=== PATIENT | male | born 2000 | race Caucasian/White ===

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

== ENCOUNTER 2021-08-19 22:09 | Inpatient (IN) | payer BC, MEDICAID ==
--- NOTE | 2021-08-20 01:06 | ED ---
Psych HPI - General Chief Complaint: Psychiatric Symptoms Stated Complaint: Petition Time Seen by Provider: 08/19/21 23:28 Source: patient Mode of arrival: ambulatory - History of Present Illness Initial Comments: This patient is a 21-year-old man with history of long-standing depression who is brought to have psychiatric evaluation. The patient's mother had called police to have him evaluated here. He had made statements that he would be better off . The patient admits to making the statements but states that he has had long-standing depression and that he is not feel at risk of harming himself today. Complaint: feels depressed -: year(s) Associated Psychiatric Symptoms: depression Quality: constant Improves With: none Worsens With: none Associated Symptoms: denies other symptoms - Related Data Previous Rx's Medication Instructions Recorded Albuterol Nebulized [Ventolin 2.5 mg INHALATION Q4H #30 nebu 10/19/18 Nebulized] Azithromycin [Zithromax Z-pack (6 250 mg PO DIRECTED #6 tab 10/19/18 tabs)] methylPREDNISolone [Medrol Dose 4 mg PO DIRECTED #1 pack 10/19/18 Pack] Allergies Allergy/AdvReac Type Severity Reaction Status Date / Time No Known Allergies Allergy Verified 10/19/18 11:53 Review of Systems ROS Statement: Those systems with pertinent positive or pertinent negative responses have been documented in the HPI. ROS Other: All systems not noted in ROS Statement are negative. Constitutional: Denies: fever, chills Respiratory: Denies: cough, dyspnea Cardiovascular: Denies: chest pain, palpitations Gastrointestinal: Denies: abdominal pain, vomiting, diarrhea Genitourinary: Denies: dysuria Musculoskeletal: Denies: back pain Skin: Denies: rash Neurological: Denies: headache Psychiatric: Reports: depression. Denies: auditory hallucinations, visual hallucinations, homicidal thoughts, suicidal thoughts Past Medical History Past Medical History: No Reported History History of Any Multi-Drug Resistant Organisms: None Reported Past Surgical History: No Surgical Hx Reported Past Psychological History: Anxiety, Depression Smoking Status: Current every day smoker Past Alcohol Use History: None Reported Past Drug Use History: Marijuana General Exam Limitations: no limitations General appearance: alert, in no apparent distress Head exam: Present: atraumatic, normocephalic Eye exam: Present: normal appearance. Absent: scleral icterus, conjunctival injection Neck exam: Present: normal inspection Respiratory exam: Present: normal lung sounds bilaterally. Absent: respiratory distress, wheezes, rales, rhonchi, stridor Cardiovascular Exam: Present: regular rate, normal rhythm, normal heart sounds. Absent: systolic murmur, diastolic murmur, rubs, gallop GI/Abdominal exam: Present: soft. Absent: distended, tenderness, guarding, rebound, rigid, mass Extremities exam: Present: normal inspection, normal capillary refill. Absent: pedal edema, calf tenderness Back exam: Present: normal inspection. Absent: CVA tenderness (R), CVA tenderness (L) Neurological exam: Present: alert Psychiatric exam: Present: depressed. Absent: agitated, anxious, flat affect, homicidal ideation, suicidal ideation Skin exam: Present: warm, dry, intact, normal color. Absent: rash Course Vital Signs 08/19/21 22:28 Temperature 98.0 F Pulse Rate 58 L Respiratory 18 Rate Blood Pressure 121/66 O2 Sat by Pulse 99 Oximetry Medical Decision Making - Lab Data Lab Results 08/20/21 Range/Units 03:10 Coronavirus (PCR) Not Detected (Not Detectd) Disposition Clinical Impression: Mood disorder Disposition: ADMITTED IP TO THIS HOSP Condition: Fair Is patient prescribed a controlled substance at d/c from ED?: No
[2021-08-20] MEDS ORDERED: MAG HYDROX/AL HYDROX/SIMETH 30 ML CUP PO PRN (03:50)
[2021-08-20] MEDS ORDERED: HALOPERIDOL LACTATE 5 MG/ML 1 ML VIAL IM PRN (03:50)
[2021-08-20] MEDS ORDERED: ACETAMINOPHEN TAB 325 MG TAB PO PRN (03:50)
[2021-08-20] MEDS ORDERED: MAGNESIUM HYDROXIDE 2,400 MG/10 ML CUP PO PRN (03:50)
[2021-08-20] MEDS ORDERED: LORazepam 2 MG/ML INJ IM PRN (03:53)
[2021-08-20] MEDS: LORazepam 1 MG TAB PO PRN (04:00)
[2021-08-20] MEDS: haloperidoL 5 MG TAB PO PRN (05:57)
[2021-08-20] MEDS: NICOTINE 14MG/24HR PATCH TRANSDERM SCH (09:52)
[2021-08-20 12:21] LABS: Potassium 4.9 mmol/L (3.5-5.1)
[2021-08-20 12:22] LABS: ALT 13 U/L (4-49); AST 21 U/L (17-59); African American GFR (CKD) >90 (>60 ml/min/1.73 sqM); Albumin 4.7 g/dL (3.5-5.0); Alkaline Phosphatase 43 U/L (38-126); Anion Gap 6 mmol/L; Blood Urea Nitrogen 16 mg/dL (9-20); Carbon Dioxide 31 mmol/L (22-30); Chloride 104 mmol/L (98-107); Glucose 94 mg/dL (74-99); Non-African American GFR(CKD) >90 (>60 ml/min/1.73 sqM); Sodium 141 mmol/L (137-145); Total Bilirubin 0.8 mg/dL (0.2-1.3); Total Protein 7.4 g/dL (6.3-8.2)
--- NOTE | 2021-08-20 13:54 | P.HP ---
Psychiatric H&P - . H&P Date: 08/20/21 History & Physical: IDENTIFYING DATA: Patient is a 21 year old male with history of depression who was brought into the ER by his mother for suicidal ideation. HPI: Patient presented to the hospital with his mother on a petition completed by his mother that states "Vish has severe depression, has said multiple times he wants to "kill himself". On evaluation today, patient admits to making suicidal statements yesterday to his mother. He responds to most questions with "I don't know". He reports depressed mood, sleep is variable, has difficulty falling asleep and staying asleep. He endorses anhedonia, low energy, fair zachery ntration, ok appetite. At this time, patient denies any suicidal or homicidal ideations intent or plan. At this time patient denies any auditory or visual hallucinations. Patient denies any flight of ideas, racing thoughts, and increased in goal directed behavior. There is no history of nimisha illicited on assessment. Patient admits to using marijuana daily "all day". He reports high anxiety where he tends to worry about everything. We called his mother with his permission and mother reports he struggles with depression and anxiety, and he has also been taking "Percs" which patient denies. Mother reports last night patient threatened to take his pills last night in front of his girlfriend, who took the pills away from him and a mother took them from girlfriend. PAST PSYCHIATRIC HISTORY: Patient states that he has not been diagnosed with any mental illness, but "I know I have it - anxiety, depression, bipolar depression. Patient denies being on any psychiatric medications. Patient denies any previous psychiatric hospitalizations. Patient denies any psychiatric outpatient follow- up. Patient denies any history of suicide attempts in the past. PMH: denies ALLERGIES: as per EMR CHEMICAL DEPENDENCY HISTORY: He denies alcohol use. He denies tobacco use. He smokes marijuana daily "all day". He denies any other drug use. FAMILY PSYCHIATRIC/SUBSTANCE USE HISTORY: Father with anxiety, depression, "bipolar depression" and he takes medications (Depakote, Abilify, Klonopin, Zoloft), but has never been hospitalized per patient. SOCIAL HISTORY: Patient was born and raised in [place]. Graduated high school, did not attend college. Lives with his mother, father, sister (15 yo). He is closest to his mother. 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 MENTAL STATUS EXAM: General Appearance: Patient appears to be stated age. He is disheveled, has tattoos on his face and neck, hair is dyed umbro blonde. Patient appears to have poor hygiene and grooming. Behavior: Patient is seated without any agitated behavior. He is passively engaged with poor eye contact. Speech: Patient's speech is fluent and nonpressured. Mood/Affect: Patient reports their mood is "tired", affect is depressed and constricted. Suicidality/Homicidality: Patient denies having any suicidal or homicidal ideation intent or plan. Perceptions: Patient denies any auditory or visual hallucinations. Though content/process: There is no evidence of any delusional thought content and thought process is linear and goal-directed. Memory and concentration: Alert, oriented to person, place, time and situation. Grossly intact for the purposes of this session. Can spell "WORLD" backwards Judgment and insight: Fair STRENGTHS/WEAKNESSES: Strength is that patient is "making music". Weakness is that patient "talking to people". INTELLECT: Average IMPRESSIONS: Major depressive disorder, single episode, severe without psychotic features Unspecified anxiety disorder, r/o Generalized anxiety disorder Cannabis use disorder PLAN: -Patient is admitted under voluntary status to [facility]HU for stabilization of psychiatric symptoms and safety. Patient has signed adult voluntary form and medication consent and is placed in patient's chart. -Medications: Will start patient on Zoloft 25 mg daily today for depression and anxiety, with plan to increase as tolerated. -Ativan and Haldol PRN for agitation/aggression -Patient was counselled on substance abuse and desired to cut back on use -Patient was informed of the risks, benefits and side effects of the medication and patient verbally consented to taking the medications. Patient signed med consent form and was placed in chart. -Internal Medicine consult to perform medical evaluation and physical. -NRT - does not smoke tobacco. -SW on board for discharge planning. Encourage patient to participate in groups to work on coping skills. Allergies Allergy/AdvReac Type Severity Reaction Status Date / Time No Known Allergies Allergy Verified 10/19/18 11:53 Vital Signs Temp 98.0 F 08/20/21 05:48 Pulse 52 L 08/20/21 05:48 Resp 20 08/20/21 05:48 BP 137/65 08/20/21 05:48 Pulse Ox 99 08/19/21 22:28 FiO2 Intake & Output 08/19/21 08/20/21 08/20/21 18:59 06:59 18:59 Weight 58.967 kg Laboratory Last Values Sodium 141 mmol/L (137-145) 08/20/21 11:34 Potassium 4.9 mmol/L (3.5-5.1) 08/20/21 11:34 Chloride 104 mmol/L (98-107) 08/20/21 11:34 Carbon Dioxide 31 mmol/L (22-30) H 08/20/21 11:34 Anion Gap 6 mmol/L 08/20/21 11:34 BUN 16 mg/dL (9-20) 08/20/21 11:34 Creatinine 0.67 mg/dL (0.66-1.25) 08/20/21 11:34 Est GFR (CKD-EPI)AfAm >90 (>60 ml/min/1.73 sqM) 08/20/21 11:34 Est GFR (CKD-EPI)NonAf >90 (>60 ml/min/1.73 sqM) 08/20/21 11:34 Glucose 94 mg/dL (74-99) 08/20/21 11:34 Calcium 10.0 mg/dL (8.4-10.2) 08/20/21 11:34 Total Bilirubin 0.8 mg/dL (0.2-1.3) 08/20/21 11:34 AST 21 U/L (17-59) 08/20/21 11:34 ALT 13 U/L (4-49) 08/20/21 11:34 Alkaline Phosphatase 43 U/L (38-126) 08/20/21 11:34 Total Protein 7.4 g/dL (6.3-8.2) 08/20/21 11:34 Albumin 4.7 g/dL (3.5-5.0) 08/20/21 11:34 TSH 1.910 mIU/L (0.465-4.680) 08/20/21 11:34 Coronavirus (PCR) Not Detected (Not Detectd) 08/20/21 03:10 08/20/21 13:27
[2021-08-20] MEDS: SERTRALINE 25 MG TAB PO SCH (14:04)
--- NOTE | 2021-08-20 17:31 | P.CONS ---
History of Present Illness - History of Present Illness This is a pleasant 21 years old male with no significant past medical history presents to the mental health unit with severe depression and suicidal thoughts . By his mother so she got distribution engineering technologist-call polys to bring him here. The patient fully awake and oriented to time he was lying in bed looks withdrawn. Denies chest pain no dyspnea, no abdominal pain, no change in urine or bowel habits. No fever. He denies smoking, alcohol or illicit tracts. She is currently on Haldol and follow-up as per psychiatry team Patient slightly bradycardic at 52, rest of vitals are stable. BNP is unremarkable. Covid test is negative Review of Systems CONSTITUTIONAL: No fever, no malaise, no fatigue. HEENT: No recent visual problems or hearing problems. Denied any sore throat. CARDIOVASCULAR: No orthopnea, PND, no palpitations, no syncope. PULMONARY: No shortness of breath, no cough, no hemoptysis. GASTROINTESTINAL: No diarrhea, no nausea, no vomiting, no abdominal pain. Normoactive bowel sounds. NEUROLOGICAL: No headaches, no weakness, no numbness. HEMATOLOGICAL: Denies any bleeding or petechiae. GENITOURINARY: Denies any burning micturition, frequency, or urgency. MUSCULOSKELETAL/RHEUMATOLOGICAL: Denies any joint pain, swelling, or any muscle pain. ENDOCRINE: Denies any polyuria or polydipsia. Past Medical History Past Medical History: No Reported History History of Any Multi-Drug Resistant Organisms: None Reported Past Surgical History: No Surgical Hx Reported Past Anesthesia/Blood Transfusion Reactions: No Reported Reaction Past Psychological History: Anxiety, Depression Smoking Status: Current every day smoker Past Alcohol Use History: None Reported Past Drug Use History: Marijuana Medications and Allergies Home Medications Medication Instructions Recorded Confirmed Type Albuterol Nebulized [Ventolin 2.5 mg INHALATION Q4H #30 nebu 10/19/18 Rx Nebulized] Azithromycin [Zithromax Z-pack (6 250 mg PO DIRECTED #6 tab 10/19/18 Rx tabs)] methylPREDNISolone [Medrol Dose 4 mg PO DIRECTED #1 pack 10/19/18 Rx Pack] Allergies Allergy/AdvReac Type Severity Reaction Status Date / Time No Known Allergies Allergy Verified 10/19/18 11:53 Physical Exam Vitals: Vital Signs Temp Pulse Pulse Resp BP BP Pulse Ox 08/20/21 05:48 98.0 F 52 L 20 137/65 08/19/21 22:28 98.0 F 58 L 18 121/66 99 Intake and Output 08/19/21 08/20/21 08/20/21 22:59 06:59 14:59 Other: Weight 58.967 kg 58.967 kg vGENERAL: The patient is alert and oriented x3, not in any acute distress. Well developed, well nourished. HEENT: Pupils are round and equally reacting to light. EOMI. No scleral icterus. No conjunctival pallor. Normocephalic, atraumatic. No pharyngeal erythema. No thyromegaly. CARDIOVASCULAR: S1 and S2 present. No murmurs, rubs, or gallops. PULMONARY: Chest is clear to auscultation, no wheezing or crackles. ABDOMEN: Soft, nontender, nondistended, normoactive bowel sounds. No palpable organomegaly. MUSCULOSKELETAL: No joint swelling or deformity. EXTREMITIES: No cyanosis, clubbing, or pedal edema. NEUROLOGICAL: Gross neurological examination did not reveal any focal deficits. SKIN: No rashes. No petechiae Results CBC & Chem 7: 08/20/21 11:34 Assessment and Plan Assessment: Assessment/plan: -Depression, suicidal thoughts and other psychiatric illnesses, management as per sec primary team -Mild as symptomatic bradycardia with normal TSH, keep monitoring and follow-up outpatient. We recommend patient follow up with primary care doctor in 1 week after discharge Thank you for consulting us, we will see the patient on an as-needed basis
[2021-08-21] MEDS: haloperidoL 5 MG TAB PO PRN (01:56)
[2021-08-21] MEDS: LORazepam 1 MG TAB PO PRN (01:56)
[2021-08-21] MEDS: SERTRALINE 25 MG TAB PO SCH (08:47)
[2021-08-21] MEDS: NICOTINE 14MG/24HR PATCH TRANSDERM SCH (08:47)
[2021-08-21 09:29] LABS: Basophils # (A) 0.1 k/uL (0-0.2); Basophils % (A) 1 %; Eosinophils # (A) 0.1 k/uL (0-0.7); Eosinophils % (A) 1 %; HCT 47.9 % (39.0-53.0); HGB 15.6 gm/dL (13.0-17.5); Lymphocytes # (A) 2.7 k/uL (1.0-4.8); Lymphocytes % (A) 25 %; MCH 30.1 pg (25.0-35.0); MCHC 32.5 g/dL (31.0-37.0); MCV 92.5 fL (80.0-100.0); Mean Platelet Volume 6.5; Monocytes # (A) 0.7 k/uL (0-1.0); Monocytes % (A) 6 %; Neutrophils # (A) 7.1 k/uL (1.3-7.7); Neutrophils % (A) 66 %; Platelet Count 360 k/uL (150-450); RBC 5.18 m/uL (4.30-5.90); RDW 12.1 % (11.5-15.5); WBC 10.8 k/uL (4.0-11.0)
--- NOTE | 2021-08-21 15:56 | P.PN ---
Progress Note - Text Progress Note Date: 08/21/21 Interval history: Patient was directable and agreeable to speak with director underwriter sales. He reports his mood is "pretty good". He attended group yesterday afternoon and this morning, where they talked about self-awareness. At this time, patient denies any suicidal or homicidal ideations, intent or plan. Denies any auditory or visual hallucinations. Patient denies any side effects from the medications and has been compliant with meds. He reports feeling anxious, is worrying about going back home. He denies depressed mood, but objectively appears depressed. He reports good sleep. He took a nap this afternoon. He responds "I don't know" or "like what" to most questions. Thoughts appear evasive and simplistic. He is passively engaged in assessment, and when confronted about this he states he just wants to go home. He then begins to engage in assessment a bit more. He is focused on "getting out of here." Mental status exam: General Appearance: Patient appears to be stated age. Hair is brushed, and he is dressed in clean, casual attire. Hygiene is fair. He has multiple tattoos on his face, neck, arms and hands. Behavior: No agitated behavior. Patient is passively engaged in assessment. Speech: Patient's speech is fluent and nonpressured. Mood/Affect: Mood is improving mildly, affect is congruent and constricted. Suicidality/Homicidality: Patient denies having any suicidal or homicidal ideation intent or plan. Perceptions: Patient denies any auditory or visual hallucinations. Though content/process: There is no evidence of any delusional thought content and thought process is linear and goal-directed. Memory and concentration: AOX3, grossly intact for the purposes of this session Judgment and insight: Improving mildly Assessment/Plan: Continue with current diagnosis. Patient continues to meet criteria for inpatient psychiatric admission for sympt om stabilization and safety. Will give another Zoloft 25 mg x 1 now to make today's dose equal to 50 mg. Will change Zoloft to 50 mg daily starting tomorrow morning for depression/anxiety. Monitor for medication compliance and for any psychotropic medication side effects. Will continue to monitor ongoing response to treatment. Encouraged participation in milieu.
[2021-08-21] MEDS ORDERED: SERTRALINE 25 MG TAB PO ONE (18:18)
[2021-08-22 06:41] VITALS: RESP 14
[2021-08-22] MEDS: SERTRALINE 50 MG TAB PO SCH (08:35)
[2021-08-22] MEDS: NICOTINE 14MG/24HR PATCH TRANSDERM SCH (08:35)
--- NOTE | 2021-08-22 12:22 | P.PN ---
Progress Note - Text Progress Note Date: 08/22/21 Interval history: Patient was directable and agreeable to speak with chart writer. He reports his mood is "pretty good". He reports he attended all the groups so far today. At this time, patient denies any suicidal or homicidal ideations, intent or plan. Denies any auditory or visual hallucinations. Patient denies any side effects from the medications and has been compliant with meds. He reports he is anxious, feels it in his chest, harder to breath, sweating. He denies depressed mood, but objectively affect appears improved. He reports good sleep, good appetite. Mental status exam: General Appearance: Patient appears to be stated age. Hair is brushed, and he is dressed in clean, casual attire. Hygiene is fair. He has multiple tattoos on his face, neck, arms and hands. Behavior: No agitated behavior. Patient is passively engaged in assessment. Speech: Patient's speech is fluent and nonpressured. Mood/Affect: Mood is improving mildly, affect is congruent and constricted. Suicidality/Homicidality: Patient denies having any suicidal or homicidal ideation intent or plan. Perceptions: Patient denies any auditory or visual hallucinations. Though content/process: There is no evidence of any delusional thought content and thought process is linear and goal-directed. Memory and concentration: AOX3, grossly intact for the purposes of this session Judgment and insight: Improving mildly Assessment/Plan: Continue with current diagnosis. Patient continues to meet criteria for inpatient psychiatric admission for symptom stabilization and safety. Continue Zoloft 50 mg daily for depression/anxiety. Start Propranolol 10 mg TID PRN for anxiety; hold for vital sign parameters (if BP less than 100/60, HR less than 60 or dizziness). Consider discharge in the next 1-2 days if patient continues to stabilize. He will need outpatient counseling. Monitor for medication compliance and for any psychotropic medication side effects. Will continue to monitor ongoing response to treatment. Encouraged participation in milieu.
[2021-08-22] MEDS: PROPRANOLOL 10 MG TAB PO SCH ×2 (12:50→20:52)
[2021-08-22] MEDS ORDERED: SERTRALINE 25 MG TAB PO ONE (15:56)
[2021-08-23 07:19] VITALS: BP 117/75; PULSE 57; TEMP 97.5
[2021-08-23] MEDS: SERTRALINE 50 MG TAB PO SCH (08:35)
[2021-08-23] MEDS: NICOTINE 14MG/24HR PATCH TRANSDERM SCH (08:35)
[2021-08-23] MEDS: PROPRANOLOL 10 MG TAB PO SCH (08:35)
--- NOTE | 2021-08-23 14:01 | P.DS ---
Providers Date of admission: 08/20/21 03:48 Expected date of discharge: 08/23/21 Attending physician: Masoud Mann MD Consults: 08/20/21 03:50 Consult Physician Routine Consulting Provider: Mark George Consult Reason/Comments: H and P Do you want consulting provider notified?: Yes Primary care physician: Rae Tay Caryl - Discharge Diagnosis(es) (1) Major depressive disorder, single episode, moderate degree Status: Acute Priority: High (2) Generalized anxiety disorder Status: Acute Priority: Medium (3) Cannabis use disorder, moderate, dependence Status: Chronic Priority: Medium Hospital Course: Admission HPI: Initial psychiatric evaluation was completed by Dr. Rodriguez on 08/20/2021 who wrote: "IDENTIFYING DATA: Patient is a 21 year old male with history of depression who was brought into the ER by his mother for suicidal ideation. Patient presented to the hospital with his mother on a petition completed by his mother that states "Vish has severe depression, has said multiple times he wants to "kill himself". On evaluation today, patient admits to making suicidal statements yesterday to his mother. He responds to most questions with "I don't know". He reports depressed mood, sleep is variable, has difficulty falling asleep and staying asleep. He endorses anhedonia, low energy, fair concentration, ok appetite. At this time, patient denies any suicidal or homicidal ideations intent or plan. At this time patient denies any auditory or visual hallucinations. Patient denies any flight of ideas, racing thoughts, and increased in goal directed behavior. There is no history of nimisha illicited on assessment. Patient admits to using marijuana daily "all day". He reports high anxiety where he tends to worry about everything. We called his mother with his permission and mother reports he struggles with depression and anxiety, and he has also been taking "Percs" which patient denies. Mother reports last night patient threatened to take his pills last night in front of his girlfriend, who took the pills away from him and a mother took them from girlfriend. Patient states that he has not been diagnosed with any mental illness, but "I know I have it - anxiety, depression, bipolar depression. Patient denies being on any psychiatric medications. Patient denies any previous psychiatric hospitalizations. Patient denies any psychiatric outpatient follow-up. Patient denies any history of suicide attempts in the past." Hospital course: Upon admission to the unit patient was initially noted to be disheveled, with a depressed affect and tired mood. Patient was however directable and agreeable to commence treatment. Patient got along well with other patients on the unit and followed unit protocol. Patient was compliant with the medications and denied any side effects throughout hospital course. Patient was started on Zoloft for depression and anxiety. Patient has been selectively quiet and had poor ability to verbalize exactly how he has been feeling. He displayed passive engagement throughout the hospitalization. He did attend groups and has been adherent with his medications. The patient has been adherent with Zoloft in his propranolol and displayed significant improvement in regards his target symptoms of depression and suicidal ideation. On the day of discharge, the patient is not reporting any suicidal or homicidal ideation, intention, and/or plan. He is not reporting any auditory or visual hallucinations. He denies any access to firearms or other weapons. The patient has been adherent with his medications and not reporting any significant side effects. He reports no paranoia or other delusions. He denies any issues regarding sleepers appetite. The patient does have significant history of marijuana abuse and was counseled at great length on abstaining from drugs and alcohol. The patient was encouraged to be adherent with his medications and follow-up with his outpatient psychiatric appointments. Prior to discharge, methamphetamine and apparently a social work instructor contact the questions and ensure safety. Mental status exam: General Appearance: Patient appears to be stated age is alert, pleasant, and cooperative. Patient is in no acute distress and has fair hygiene and grooming. Behavior: Patient is calmly seated without any agitated behavior. Speech: Patient's speech is fluent and nonpressured. Mood/Affect: Patient reports their mood is "doing okay. I don't know.", affect is congruent and euthymic. Suicidality/Homicidality: Patient denies any suicidal or homicidal ideation, intention, and/or plan. Perceptions: Patient denies any auditory or visual hallucinations. Though content/process: There is no evidence of any delusional thought content and thought process is linear and goal-directed. The patient reports future orientation with the dream to become a music video director. Memory and concentration: AOX3, grossly intact for the purposes of this session. Can spell "WORLD" backwards correctly. Judgment and insight: Improved Vital Signs Temp 97.5 F L 08/23/21 07:18 Pulse 57 L 08/23/21 07:18 Resp 14 08/22/21 06:41 BP 117/75 08/23/21 07:18 Pulse Ox 98 08/23/21 07:18 FiO2 Laboratory Results WBC 10.8 k/uL (4.0-11.0) 08/21/21 07:57 RBC 5.18 m/uL (4.30-5.90) 08/21/21 07:57 Hgb 15.6 gm/dL (13.0-17.5) 08/21/21 07:57 Hct 47.9 % (39.0-53.0) 08/21/21 07:57 MCV 92.5 fL (80.0-100.0) 08/21/21 07:57 MCH 30.1 pg (25.0-35.0) 08/21/21 07:57 MCHC 32.5 g/dL (31.0-37.0) 08/21/21 07:57 RDW 12.1 % (11.5-15.5) 08/21/21 07:57 Plt Count 360 k/uL (150-450) 08/21/21 07:57 MPV 6.5 08/21/21 07:57 Neutrophils % 66 % 08/21/21 07:57 Lymphocytes % 25 % 08/21/21 07:57 Monocytes % 6 % 08/21/21 07:57 Eosinophils % 1 % 08/21/21 07:57 Basophils % 1 % 08/21/21 07:57 Neutrophils # 7.1 k/uL (1.3-7.7) 08/21/21 07:57 Lymphocytes # 2.7 k/uL (1.0-4.8) 08/21/21 07:57 Monocytes # 0.7 k/uL (0-1.0) 08/21/21 07:57 Eosinophils # 0.1 k/uL (0-0.7) 08/21/21 07:57 Basophils # 0.1 k/uL (0-0.2) 08/21/21 07:57 Sodium 141 mmol/L (137-145) 08/20/21 11:34 Potassium 4.9 mmol/L (3.5-5.1) 08/20/21 11:34 Chloride 104 mmol/L (98-107) 08/20/21 11:34 Carbon Dioxide 31 mmol/L (22-30) H 08/20/21 11:34 Anion Gap 6 mmol/L 08/20/21 11:34 BUN 16 mg/dL (9-20) 08/20/21 11:34 Creatinine 0.67 mg/dL (0.66-1.25) 08/20/21 11:34 Est GFR (CKD-EPI)AfAm >90 (>60 ml/min/1.73 sqM) 08/20/21 11:34 Est GFR (CKD-EPI)NonAf >90 (>60 ml/min/1.73 sqM) 08/20/21 11:34 Glucose 94 mg/dL (74-99) 08/20/21 11:34 Calcium 10.0 mg/dL (8.4-10.2) 08/20/21 11:34 Total Bilirubin 0.8 mg/dL (0.2-1.3) 08/20/21 11:34 AST 21 U/L (17-59) 08/20/21 11:34 ALT 13 U/L (4-49) 08/20/21 11:34 Alkaline Phosphatase 43 U/L (38-126) 08/20/21 11:34 Total Protein 7.4 g/dL (6.3-8.2) 08/20/21 11:34 Albumin 4.7 g/dL (3.5-5.0) 08/20/21 11:34 TSH 1.910 mIU/L (0.465-4.680) 08/20/21 11:34 Coronavirus (PCR) Not Detected (Not Detectd) 08/20/21 03:10 Allergies Allergy/AdvReac Type Severity Reaction Status Date / Time No Known Allergies Allergy Verified 10/19/18 11:53 Impression: Major depressive disorder, single episode, severe without psychotic features Generalized anxiety disorder Cannabis use disorder Plan: -Continue with discharge today as patient has improved and stabilized psy chiatrically and is not currently an imminent threat to himself and/or others. Patient will remain at chronically elevated risk for harm to self and/or others due to his heavy marijuana use. -Continue medications: Inderal 10 mg by mouth 3 times a day for anxiety Zoloft 50 mg by mouth daily for depression/anxiety -Patient was counseled on the need for medication compliance and appropriate follow-up at mental health and also primary care for medical issues. Patient verbalized understanding and agreed. -Social work to arrange for and conduct family meeting to ensure safety upon discharge and answer any questions/concerns. Social work also to arrange for patients follow up appointments with the [facility] for psychiatric care along with follow up with primary care provider. -Patient counseled on abstaining from recreational drugs and marijuana and alcohol. Was informed/educated on the adverse effects on their physical and mental health. Patient verbally agreed and understood. -Patient was instructed to return to the hospital or seek immediate medical care if their psychiatric or medical symptoms do worsen or reoccur. -Psychoeducation and supportive therapy provided to patient. Risks and benefits of pharmacological treatment versus the risks and benefits of nontreatment weight and discussed. Informed consent discussion held. Common side effects of psychotropics discussed such as, but not limited to headache, GI disturbance, sexual dysfunction, movement disorders, sedation, and orthostatic hypotension. Life threatening and blackbox warnings of prescribed medications also discussed. Potential risks of operating a vehicle or heavy machinery discussed with patient at length. Advised on importance of compliance and a reliable and responsible manner. Patient advised to review FDA consumer labeling of all medications prior to taking. Patient verbalized understanding of potential risks, and agrees with current treatment plan. Patient advised to medically contact physician/emergency personnel if any acute changes in condition occur. Patient Condition at Discharge: Stable Plan - Discharge Summary Discharge Rx Participant: No New Discharge Prescriptions: New Propranolol [Inderal] 10 mg PO TID 15 Days tab Sertraline [Zoloft] 50 mg PO DAILY 15 Days tab Continue methylPREDNISolone [Medrol Dose Pack] 4 mg PO DIRECTED #1 pack Albuterol Nebulized [Ventolin Nebulized] 2.5 mg INHALATION Q4H #30 nebu Discontinued Azithromycin [Zithromax Z-pack (6 tabs)] 250 mg PO DIRECTED #6 tab Discharge Medication List Albuterol Nebulized [Ventolin Nebulized] 2.5 mg INHALATION Q4H #30 nebu 10/19/18 [Rx] methylPREDNISolone [Medrol Dose Pack] 4 mg PO DIRECTED #1 pack 10/19/18 [Rx] Propranolol [Inderal] 10 mg PO TID 15 Days tab 08/23/21 [Rx] Sertraline [Zoloft] 50 mg PO DAILY 15 Days tab 08/23/21 [Rx] Follow up Appointment(s)/Referral(s): [facility] [Outside] - 08/31/21 2:30 pm (08/31/2021 @ 2:30 PM with Karli & 2:00 PM for paperwork) Rae Hutson III, MD [Primary Care Provider] - 1-2 days Patient Instructions/Handouts: Depression (DC) Activity/Diet/Wound Care/Special Instructions: Activity and diet as tolerated. Avoid the use of street drugs and alcohol. Take all medications as prescribed. When you are in need of refills on your medications please contact your medical provider and/or outpatient psychiatrist to have this done. Please go to scheduled outpatient appointment for aftercare treatment. If symptoms return or become worse, call the crisis line at and/or go to the nearest emergency room for evaluation Discharge Disposition: HOME SELF-CARE
== END 2021-08-23 12:17 | disposition home or self-care (01) | DRG 885 ==
LOC: EC 22:09 → 3MHU 08-20 03:48
PROVIDERS: ADMIT Psychiatry & Neurology Psychiatry; ATTEND Psychiatry & Neurology Psychiatry
DX: F32.2 Major depressive disorder, single episode, severe without psychotic features (principal); R45.851 Suicidal ideations; F12.20 Cannabis dependence, uncomplicated; F17.200 Nicotine dependence, unspecified, uncomplicated; F41.1 Generalized anxiety disorder; Z20.822 Contact with and (suspected) exposure to COVID-19; Z79.899 Other long term (current) drug therapy; Z81.8 Family history of other mental and behavioral disorders
CPT/HCPCS: 80053; 82075; 84443; 85025; 87635; 99284

== ENCOUNTER 2021-09-25 03:56 | Emergency (ER) | payer BC, MEDICAID, OTHER ==
[2021-09-25 04:02] VITALS: TEMP 98.8
--- NOTE | 2021-09-25 04:23 | ED ---
Abdominal Pain HPI - General Chief Complaint: Abdominal Pain Stated Complaint: vomiting Time Seen by Provider: 09/25/21 04:23 Source: patient, RN notes reviewed, old records reviewed Mode of arrival: ambulatory Limitations: no limitations - History of Present Illness Initial Comments: This is a 21-year-old male to the emergency department for evaluation of persistent nausea vomiting 3 days occasional diarrhea. Abdominal pain. Weakness. No fevers no travel history no sick contacts. Patient states he does have some significant anxiety as well which may be contributing to his symptoms. No travel history no known family members with similar illness MD Complaint: abdominal pain -: hour(s) Location: diffuse, epigastric, suprapubic Radiation: epigastric, suprapubic Migration to: no migration Severity: moderate Severity scale (1-10): 7 Quality: cramping, stabbing Consistency: constant Worsens With: nothing Context: other (0) Associated Symptoms: denies other symptoms Treatments Prior to Arrival: other - Related Data Previous Rx's Medication Instructions Recorded Albuterol Nebulized [Ventolin 2.5 mg INHALATION Q4H #30 nebu 10/19/18 Nebulized] methylPREDNISolone [Medrol Dose 4 mg PO DIRECTED #1 pack 10/19/18 Pack] Propranolol [Inderal] 10 mg PO TID 15 Days tab 08/23/21 Sertraline [Zoloft] 50 mg PO DAILY 15 Days tab 08/23/21 Allergies Allergy/AdvReac Type Severity Reaction Status Date / Time No Known Allergies Allergy Verified 09/25/21 03:57 Review of Systems ROS Statement: Those systems with pertinent positive or pertinent negative responses have been documented in the HPI. ROS Other: All systems not noted in ROS Statement are negative. Past Medical History Past Medical History: No Reported History History of Any Multi-Drug Resistant Organisms: None Reported Past Surgical History: No Surgical Hx Reported Past Anesthesia/Blood Transfusion Reactions: No Reported Reaction Past Psychological History: Anxiety, Depression Smoking Status: Current every day smoker Past Alcohol Use History: None Reported Past Drug Use History: Marijuana General Exam Limitations: no limitations General appearance: alert, in no apparent distress Head exam: Present: atraumatic, normocephalic, normal inspection Eye exam: Present: normal appearance, PERRL, EOMI. Absent: scleral icterus, conjunctival injection, periorbital swelling ENT exam: Present: normal exam, mucous membranes moist Neck exam: Present: normal inspection. Absent: tenderness, meningismus, lymphadenopathy Respiratory exam: Present: normal lung sounds bilaterally. Absent: respiratory distress, wheezes, rales, rhonchi, stridor Cardiovascular Exam: Present: regular rate, normal rhythm, normal heart sounds. Absent: systolic murmur, diastolic murmur, rubs, gallop, clicks GI/Abdominal exam: Present: soft, tenderness, guarding, normal bowel sounds. Absent: distended, rebound, rigid Extremities exam: Present: normal inspection, full ROM, normal capillary refill. Absent: tenderness, pedal edema, joint swelling, calf tenderness Back exam: Present: normal inspection Neurological exam: Present: alert, oriented X3, CN II-XII intact Psychiatric exam: Present: normal affect, normal mood Skin exam: Present: warm, dry, intact, normal color. Absent: rash Course Vital Signs 09/25/21 09/25/21 09/25/21 03:57 04:24 06:36 Temperature 98.8 F Pulse Rate 60 72 97 Respiratory 18 18 16 Rate Blood Pressure 131/66 122/77 113/75 O2 Sat by Pulse 98 100 100 Oximetry - Reevaluation(s) Reevaluation #1: 09/25/21 Medical record is reviewed Reevaluation #2: 09/25/21 patient informed results and questions answered Reevaluation #3: 09/25/21 Patient feels improved informed results and questions answered Medical Decision Making - Medical Decision Making 21-year-old male to 2 the emergency department DF for evaluation of abdominal pain positive nausea vomiting unable to keep anything down. Patient does admit to some anxiety. No fevers no significant current diarrhea. Patient symptoms are improved here in the ER and will be discharged home - Lab Data Result diagrams: 09/25/21 04:56 09/25/21 04:56 Lab Results 09/25/21 09/25/21 Range/Units 04:56 04:56 WBC 10.9 (4.0-11.0) k/uL RBC 4.80 (4.30-5.90) m/uL Hgb 14.6 (13.0-17.5) gm/dL Hct 43.3 (39.0-53.0) % MCV 90.3 (80.0-100.0) fL MCH 30.5 (25.0-35.0) pg MCHC 33.8 (31.0-37.0) g/dL RDW 11.9 (11.5-15.5) % Plt Count 358 (150-450) k/uL MPV 6.5 Neutrophils % 77 % Lymphocytes % 13 % Monocytes % 7 % Eosinophils % 1 % Basophils % 1 % Neutrophils # 8.4 H (1.3-7.7) k/uL Lymphocytes # 1.4 (1.0-4.8) k/uL Monocytes # 0.8 (0-1.0) k/uL Eosinophils # 0.1 (0-0.7) k/uL Basophils # 0.2 (0-0.2) k/uL Sodium 140 (137-145) mmol/L Potassium 3.5 (3.5-5.1) mmol/L Chloride 101 (98-107) mmol/L Carbon Dioxide 27 (22-30) mmol/L Anion Gap 12 mmol/L BUN 17 (9-20) mg/dL Creatinine 0.66 (0.66-1.25) mg/dL Est GFR (CKD-EPI)AfAm >90 (>60 ml/min/1.73 sqM) Est GFR (CKD-EPI)NonAf >90 (>60 ml/min/1.73 sqM) Glucose 109 H (74-99) mg/dL Calcium 10.1 (8.4-10.2) mg/dL Total Bilirubin 1.5 H (0.2-1.3) mg/dL AST 21 (17-59) U/L ALT 17 (4-49) U/L Alkaline Phosphatase 56 (38-126) U/L Total Protein 8.2 (6.3-8.2) g/dL Albumin 5.2 H (3.5-5.0) g/dL Amylase 73 (30-110) U/L Lipase 109 (23-300) U/L - Radiology Data Radiology results: report reviewed (CT of the abdomen and pelvis negative for acute disease), image reviewed Disposition Clinical Impression: Nausea & vomiting Disposition: HOME SELF-CARE Instructions (If sedation given, give patient instructions): Acute Nausea and Vomiting (ED) Is patient prescribed a controlled substance at d/c from ED?: No Referrals: Rae Hutson III, MD [Primary Care Provider] - 1-2 days Time of Disposition: 06:30
[2021-09-25] MEDS ORDERED: KETOROLAC 15 MG/ML 1 ML VIAL IVP STA (04:44)
[2021-09-25] MEDS ORDERED: SODIUM CHLORIDE 0.9% 1,000 ML IV STA ×2 (04:44)
[2021-09-25] MEDS ORDERED: ONDANSETRON 4 MG/2 ML VIAL IVP STA (04:44)
[2021-09-25] MEDS ORDERED: PANTOPRAZOLE 40 MG/10 ML VIAL IVP STA (04:44)
[2021-09-25 05:03] LABS: Basophils # (A) 0.2 k/uL (0-0.2); Basophils % (A) 1 %; Eosinophils # (A) 0.1 k/uL (0-0.7); Eosinophils % (A) 1 %; HCT 43.3 % (39.0-53.0); HGB 14.6 gm/dL (13.0-17.5); Lymphocytes # (A) 1.4 k/uL (1.0-4.8); Lymphocytes % (A) 13 %; MCH 30.5 pg (25.0-35.0); MCHC 33.8 g/dL (31.0-37.0); MCV 90.3 fL (80.0-100.0); Mean Platelet Volume 6.5; Monocytes # (A) 0.8 k/uL (0-1.0); Monocytes % (A) 7 %; Neutrophils # (A) 8.4 k/uL (1.3-7.7); Neutrophils % (A) 77 %; Platelet Count 358 k/uL (150-450); RDW 11.9 % (11.5-15.5); WBC 10.9 k/uL (4.0-11.0)
[2021-09-25 05:13] LABS: ALT 17 U/L (4-49); AST 21 U/L (17-59); African American GFR (CKD) >90 (>60 ml/min/1.73 sqM); Albumin 5.2 g/dL (3.5-5.0); Alkaline Phosphatase 56 U/L (38-126); Amylase 73 U/L (30-110); Anion Gap 12 mmol/L; Blood Urea Nitrogen 17 mg/dL (9-20); Calcium 10.1 mg/dL (8.4-10.2); Carbon Dioxide 27 mmol/L (22-30); Chloride 101 mmol/L (98-107); Glucose 109 mg/dL (74-99); Lipase 109 U/L (23-300); Non-African American GFR(CKD) >90 (>60 ml/min/1.73 sqM); Potassium 3.5 mmol/L (3.5-5.1); Sodium 140 mmol/L (137-145); Total Bilirubin 1.5 mg/dL (0.2-1.3); Total Protein 8.2 g/dL (6.3-8.2)
--- NOTE | 2021-09-25 06:24 | CT ---
EXAMINATION TYPE: CT abdomen pelvis wo con DATE OF EXAM: 09/25/2021 HISTORY: generalized abdominal pain and vomiting. no prior on PACS CT DLP: 349.1 mGycm. Automated Exposure Control for Dose Reduction was Utilized. TECHNIQUE: CT scan of the abdomen and pelvis is performed without oral or IV contrast. COMPARISON: NONE FINDINGS: Within the limitations of a non-contrast study, the following observations are made. LUNG BASES: No significant abnormality is appreciated. LIVER/GB: No significant abnormality is appreciated. PANCREAS: No significant abnormality is seen. SPLEEN: No significant abnormality is seen. ADRENALS: No significant abnormality is seen. KIDNEYS: No renal stones or hydronephrosis is present bilaterally. BOWEL: Suboptimal evaluation without enteric contrast and patient having little intra-abdominal fat. No suspicious small or large bowel dilatation. GENITAL ORGANS: No gross abnormality seen. LYMPH NODES: No greater than 1cm abdominal or pelvic lymph nodes are appreciated. OSSEOUS STRUCTURES: Bilateral pars defect L5 level without spondylolisthesis. OTHER: No significant additional abnormality is seen. IMPRESSION: No acute findings evident on noncontrast CT.
[2021-09-25 06:36] VITALS: BP 113/75; PULSE 97; RESP 16
[2021-09-25] MEDS ORDERED: IBUPROFEN 600 MG STARTER PACK 4 TAB BTL PO STA (06:49)
[2021-09-25] MEDS ORDERED: DIPHENOX-ATROP STARTER PACK 8 TAB BTL PO STA (06:49)
[2021-09-25] MEDS ORDERED: ONDANSETRON 4 MG ODT STARTER PACK 2 TAB BTL PO STA (06:49)
== END 2021-09-25 07:04 | disposition home or self-care (01) ==
LOC: EC 03:56
DX: R11.2 Nausea with vomiting, unspecified (principal); R10.13 Epigastric pain; F17.200 Nicotine dependence, unspecified, uncomplicated
CPT/HCPCS: 36415; 80053; 82150; 83690; 85025; 74176; 99284; 96374; 96375; 96361; J2405; J1885; S0119; C9113